=== PATIENT | male | born 1960 | race Native Hawaiian/Other Pacific Islander ===

== ENCOUNTER 2017-02-14 22:06 | Emergency (ER) | payer OTHER ==
[~2017-02-14] VITALS: Ht 182.9 cm; Wt 101.6 kg
[2017-02-14] MEDS ORDERED: ASPIR-8181 MG PO (22:18)
[2017-02-14] MEDS ORDERED: TRAM50TA PO (22:18)
[2017-02-14] MEDS ORDERED: CARV12.5 PO (22:20)
[2017-02-14] MEDS ORDERED: COZAAR100 MG PO (22:21)
[2017-02-14] MEDS ORDERED: JANUVIA100 MG PO (22:21)
[2017-02-14] MEDS ORDERED: CENTRUM SILVER PO (22:23)
[2017-02-14 22:47] LABS: PLATELET COUNT 177 K/uL (142-355)
[2017-02-14 23:00] LABS: POTASSIUM 3.2 mmol/L (3.6-5.2); SODIUM 132 mmol/L (136-145)
[2017-02-14 23:11] LABS: PARTIAL THROMBOPLASTIN TIME 30.3 SECONDS (24.5-33.6)
[2017-02-15 02:39] VITALS: BP 134/76; TEMP 98.2
== END 2017-02-15 02:45 | disposition home or self-care (01) ==
LOC: ED 22:06
DX: K52.9 Noninfective gastroenteritis and colitis, unspecified (principal); K52.89 Other specified noninfective gastroenteritis and colitis; E11.9 Type 2 diabetes mellitus without complications
CPT/HCPCS: 36415; 80053; 81000; 83036; 85027; 85610; 85730; 87493; 96361; 96365; 99284; J0696; J2405; Q9963

== ENCOUNTER 2017-02-27 13:01 | Emergency (ER) | payer OTHER ==
[~2017-02-27] VITALS: Ht 185.4 cm; Wt 100.7 kg
[~2017-02-27 13:01] MED LIST: ASPIR-8181 MG PO; CARV12.5 PO; CENTRUM SILVER PO; COZAAR100 MG PO; JANUVIA100 MG PO; TRAM50TA PO
[2017-02-27 14:20] LABS: PLATELET COUNT 253 K/uL (142-355)
[2017-02-27 14:28] LABS: POTASSIUM 4.3 mmol/L (3.6-5.2); SODIUM 136 mmol/L (136-145)
[2017-02-27 16:30] VITALS: BP 106/69; TEMP 98.2
== END 2017-02-27 16:30 | disposition home or self-care (01) ==
LOC: ED 13:01
PROVIDERS: Specialist
DX: S20.312A Abrasion of left front wall of thorax, initial encounter (principal); S30.811A Abrasion of abdominal wall, initial encounter; S70.02XA Contusion of left hip, initial encounter; R10.32 Left lower quadrant pain; V29.3XXA Motorcycle rider (driver) (passenger) injured in unspecified nontraffic accident, initial encounter
CPT/HCPCS: 36415; 80053; 82150; 83690; 85027; 90715; 96374; 96375; 99284; J2270; J2405; Q9963

== ENCOUNTER 2017-07-10 12:47 | Emergency (ER) | payer OTHER ==
[~2017-07-10] VITALS: Ht 185.4 cm; Wt 98.9 kg
[2017-07-10 15:20] VITALS: BP 153/96; TEMP 18
== END 2017-07-10 15:20 | disposition home or self-care (01) ==
LOC: ED 12:47
DX: T78.3XXA Angioneurotic edema, initial encounter (principal); I10 Essential (primary) hypertension
CPT/HCPCS: 96374; 96375; 99284; J1100; J1200

== ENCOUNTER 2018-05-03 11:58 | Emergency (ER) | payer OTHER ==
[~2018-05-03] VITALS: Ht 185.4 cm; Wt 99.3 kg
[2018-05-03] MEDS ORDERED: AMLODIPINE BESYLATE PO (12:11)
[2018-05-03] MEDS ORDERED: LIPITOR80 MG PO (12:11)
[2018-05-03] MEDS ORDERED: HYDRALAZINE25 MG PO (12:13)
[2018-05-03 12:41] LABS: PLATELET COUNT 150 K/uL (142-355)
[2018-05-03 12:53] LABS: POTASSIUM 3.8 mmol/L (3.6-5.2); SODIUM 138 mmol/L (136-145)
[2018-05-03 15:20] VITALS: BP 136/85; TEMP 98.7
== END 2018-05-03 15:20 | disposition home or self-care (01) ==
LOC: ED 11:58
DX: R07.89 Other chest pain (principal)
CPT/HCPCS: 36415; 80053; 81000; 82550; 82553; 84484; 85027; 86318; 93005; 99283

== ENCOUNTER 2018-12-21 20:31 | Emergency (ER) | payer OTHER ==
[~2018-12-21] VITALS: Ht 185.4 cm; Wt 99.3 kg
[~2018-12-21 20:31] MED LIST changes: +AMLODIPINE BESYLATE PO; +HYDRALAZINE25 MG PO; +LIPITOR80 MG PO
[2018-12-21 22:40] VITALS: BP 174/90; TEMP 98.1
== END 2018-12-21 22:41 | disposition home or self-care (01) ==
LOC: ED 20:31
DX: R07.81 Pleurodynia (principal); S20.211A Contusion of right front wall of thorax, initial encounter; S30.1XXA Contusion of abdominal wall, initial encounter; Z98.890 Other specified postprocedural states
CPT/HCPCS: 74022; 96372; 99283; J1885

== ENCOUNTER 2019-06-01 22:22 | Emergency (ER) | payer OTHER ==
[~2019-06-01] VITALS: Ht 185.4 cm; Wt 97.1 kg
[2019-06-01 23:38] LABS: PLATELET COUNT 143 K/uL (142-355)
[2019-06-01 23:52] LABS: POTASSIUM 3.6 mmol/L (3.6-5.2); SODIUM 138 mmol/L (136-145)
[2019-06-01 23:58] LABS: PARTIAL THROMBOPLASTIN TIME 27.6 SECONDS (24.5-33.6)
[2019-06-02 01:53] VITALS: BP 174/68; TEMP 99
== END 2019-06-02 01:54 | disposition home or self-care (01) ==
LOC: ED 22:22
PROVIDERS: Emergency Medicine Emergency Medical Services
DX: R53.1 Weakness (principal); R07.89 Other chest pain
CPT/HCPCS: 80053; 81000; 82550; 83735; 83880; 84484; 85027; 85610; 85730; 87502; 93005; 96365; 96375; 99284; J1885

== ENCOUNTER 2020-09-18 11:04 | Outpatient (CLI) | payer OTHER | END 2020-09-18 23:59 | disposition home or self-care (01) | LOC: INF 11:04 | PROVIDERS: ATTEND Internal Medicine | DX: Z23 Encounter for immunization (principal) | CPT/HCPCS: 96372 ==

== ENCOUNTER 2020-10-16 10:06 | Outpatient (CLI) | payer OTHER | END 2020-10-16 21:45 | disposition home or self-care (01) | LOC: INF 10:06 | PROVIDERS: ATTEND Internal Medicine | DX: Z23 Encounter for immunization (principal) | CPT/HCPCS: 96372 ==

== ENCOUNTER 2021-02-19 08:32 | Emergency (ER) | payer OTHER | END 2021-02-19 10:15 | disposition home or self-care (01) | LOC: ED 08:32 | DX: S80.01XA Contusion of right knee, initial encounter (principal); S86.811A Strain of other muscle(s) and tendon(s) at lower leg level, right leg, initial encounter; W18.39XA Other fall on same level, initial encounter; Y92.89 Other specified places as the place of occurrence of the external cause | CPT/HCPCS: 96372; 99283; J1885 ==

== ENCOUNTER 2021-09-19 15:59 | Emergency (ER) | payer OTHER ==
[~2021-09-19] VITALS: Ht 185.4 cm; Wt 97.1 kg
[2021-09-19 17:27] LABS: PLATELET COUNT 138 K/uL (142-355)
[2021-09-19 17:35] LABS: POTASSIUM 3.8 mmol/L (3.6-5.2)
[2021-09-19 17:43] LABS: PARTIAL THROMBOPLASTIN TIME 26.6 SECONDS (24.5-33.6)
[2021-09-19 19:10] VITALS: BP 142/83; TEMP 97.6
== END 2021-09-19 19:10 | disposition home or self-care (01) ==
LOC: ED 15:59
PROVIDERS: Hospitalist
DX: R07.89 Other chest pain (principal); K29.70 Gastritis, unspecified, without bleeding
CPT/HCPCS: 80053; 81000; 82550; 83690; 83880; 84484; 85027; 85610; 85730; 93005; 96360; 96375; 99284; J2405

== ENCOUNTER 2022-02-10 13:53 | Outpatient (CLI) | payer OTHER | END 2022-02-10 18:59 | disposition home or self-care (01) | LOC: RAD 13:53 | PROVIDERS: ATTEND Neurological Surgery | DX: M48.061 Spinal stenosis, lumbar region without neurogenic claudication (principal) ==

== ENCOUNTER 2022-07-08 13:51 | Outpatient (CLI) | payer OTHER | END 2022-07-08 19:15 | disposition home or self-care (01) | LOC: RAD 13:51 | PROVIDERS: ATTEND Neurological Surgery | DX: M54.59 Other low back pain (principal) ==

== ENCOUNTER 2022-07-22 10:03 | Emergency (ER) | payer OTHER ==
[~2022-07-22] VITALS: Ht 185.4 cm; Wt 78.0 kg
[2022-07-22 10:08] VITALS: TEMP 98
[2022-07-22 11:56] VITALS: BP 141/66
== END 2022-07-22 11:50 | disposition home or self-care (01) ==
LOC: ED 10:03
DX: T78.49XA Other allergy, initial encounter (principal); X58.XXXA Exposure to other specified factors, initial encounter
CPT/HCPCS: 96372; 99284; J0171; J2930

== ENCOUNTER 2022-09-09 14:48 | Outpatient (CLI) | payer OTHER | END 2022-09-09 19:36 | disposition home or self-care (01) | LOC: RAD 14:48 | PROVIDERS: ATTEND Neurological Surgery | DX: M48.061 Spinal stenosis, lumbar region without neurogenic claudication (principal) ==

== ENCOUNTER 2022-09-12 09:44 | Emergency (ER) | payer OTHER ==
[~2022-09-12] VITALS: Ht 182.9 cm; Wt 80.7 kg
[2022-09-12 09:44] VITALS: BP 136/83; TEMP 97.1
== END 2022-09-12 12:04 | disposition home or self-care (01) ==
LOC: ED 09:44
DX: S22.32XA Fracture of one rib, left side, initial encounter for closed fracture (principal); Z98.890 Other specified postprocedural states; W01.198A Fall on same level from slipping, tripping and stumbling with subsequent striking against other object, initial encounter; Y92.410 Unspecified street and highway as the place of occurrence of the external cause
CPT/HCPCS: 96372; 99283; J1885

== ENCOUNTER 2022-12-10 19:35 | Outpatient (CLI) | payer OTHER | END 2022-12-10 20:52 | disposition home or self-care (01) | LOC: RAD 19:35 | PROVIDERS: ATTEND Neurological Surgery | DX: M48.061 Spinal stenosis, lumbar region without neurogenic claudication (principal) ==